=== PATIENT | female | born 1965 | race Caucasian/White ===

== ENCOUNTER 2023-12-01 14:50 | Emergency (ER) | payer MEDICAID ==
[~2023-12-01] VITALS: Ht 165.1 cm; Wt 53.1 kg
[2023-12-01 14:59] VITALS: TEMP 98.7
[2023-12-01 15:19] LABS: BILIRUBIN,URINE NEGATIVE (Neg); CLARITY,URINE CLOUDY (Clear); COLOR,URINE STRAW (Yellow); GLUCOSE, URINE NEGATIVE (Neg); KETONES,URINE NEGATIVE (Neg); LEUKOCYTE ESTERASE ,URINE MODERATE (Neg); NITRITES, URINE NEGATIVE (Neg); OCCULT BLOOD,URINE TRACE-INTACT (Neg); PROTEIN,URINE NEGATIVE (Neg); UROBILINOGEN,URINE 0.2 E.U/dL (0.2-1.0)
[2023-12-01 15:20] LABS: UA COLLECTION TYPE CLN CATCH MIDSTREAM
[2023-12-01] MEDS ORDERED: PHEN-716 PO (15:24)
[2023-12-01] MEDS ORDERED: CEPH-585 PO (15:24)
[2023-12-01 15:27] LABS: BACTERIA,URINE 4+ /HPF (Neg); MUCUS STRANDS FEW /LPF (Neg); RBC,URINE 0-2 /HPF (0-2); SQUAMOUS EPITHELIAL CELL,UR MANY /LPF (FEW); WBC,URINE 20-30 /HPF (0-4)
[2023-12-01] MEDS: CefTRIAXone 1000mg IM Kit (w/lidocaine diluent) IM ONE (15:40)
[2023-12-01 15:47] VITALS: BP 125/95; PULSE 80; RESP 16; O2SAT 96
== END 2023-12-01 15:49 | disposition home or self-care (01) ==
LOC: ER 14:51
DX: N39.0 Urinary tract infection, site not specified (principal)
CPT/HCPCS: 81001; 96372; 99283; J0696

== ENCOUNTER 2024-01-16 10:04 | Emergency (ER) | payer MEDICAID ==
[~2024-01-16] VITALS: Ht 165.1 cm; Wt 57.6 kg
[~2024-01-16 10:04] MED LIST: CEPH-585 PO; PHEN-716 PO
[2024-01-16 10:08] VITALS: BP 140/78; PULSE 73; RESP 18; O2SAT 98
[2024-01-16 11:24] LABS: ALBUMIN 3.9 G/DL (3.4-5.0); ANION GAP 8 (8-16); BLOOD UREA NITROGEN 8 MG/DL (7-18); BUN/CREATININE RATIO 12.1 (10.0-20.0); CALCIUM 9.2 MG/DL (8.5-10.1); CHLORIDE 105 MMOL/L (99-107); CREATININE 0.66 MG/DL (0.40-0.90); GLUCOSE 90 MG/DL (70-104); POTASSIUM 3.7 MMOL/L (3.5-5.1); SODIUM 139 MMOL/L (135-145); TOTAL CARBON DIOXIDE 26.5 MMOL/L (24-32); eCRCL 86 ML/MIN; eGFR > 90 ML/MIN
[2024-01-16 11:57] LABS: BASOPHILS # (AUTO) 0.1 X10'3 (0-0.2); EOSINOPHILS # (AUTO) 0.1 X10'3 (0-0.9); EOSINOPHILS % (AUTO) 0.8 % (0-6); HEMATOCRIT 48.5 % (35.0-45.0); HEMOGLOBIN 16.2 g/dl (12.0-16.0); LYMPHOCYTES # (AUTO) 1.1 X10'3 (1.1-4.8); LYMPHOCYTES % (AUTO) 14.5 % (21-51); MEAN CORPUSCULAR HGB CONC 33.4 g/dL (33.0-36.5); MEAN PLATELET VOLUME 8.8 FL (7.4-10.4); MONOCYTES # (AUTO) 0.5 X10'3 (0-0.9); MONOCYTES % (AUTO) 6.9 % (2-12); NEUTROPHILS # (AUTO) 5.6 X10'3 (1.8-7.7); NEUTROPHILS % (AUTO) 76.8 % (42-75); PLATELET COUNT 132 X10'3 (140-440); RED BLOOD COUNT 5.39 X10'6 (4.20-5.60); RED CELL DISTRIBUTION WIDTH 15.6 % (11.5-14.5); WHITE BLOOD COUNT 7.3 X10'3 (4.5-11.0)
[2024-01-16 11:58] LABS: BILIRUBIN,URINE NEGATIVE (Neg); CLARITY,URINE SLIGHTLY CLOUDY (Clear); COLOR,URINE YELLOW (Yellow); GLUCOSE, URINE NEGATIVE (Neg); KETONES,URINE NEGATIVE (Neg); LEUKOCYTE ESTERASE ,URINE NEGATIVE (Neg); NITRITES, URINE NEGATIVE (Neg); OCCULT BLOOD,URINE NEGATIVE (Neg); PROTEIN,URINE NEGATIVE (Neg)
[2024-01-16 12:01] LABS: UA COLLECTION TYPE CLN CATCH MIDSTREAM
[2024-01-16 12:07] LABS: MUCUS STRANDS FEW /LPF (Neg); SQUAMOUS EPITHELIAL CELL,UR MANY /LPF (FEW)
[2024-01-16 12:08] LABS: BACTERIA,URINE 1+ /HPF (Neg); RBC,URINE 0-2 /HPF (0-2); WBC,URINE 0-4 /HPF (0-4)
[2024-01-16] MEDS ORDERED: DET2LAC PO (12:26)
[2024-01-16 12:41] VITALS: TEMP 98
== END 2024-01-16 12:42 | disposition home or self-care (01) ==
LOC: ER 10:05
DX: R35.0 Frequency of micturition (principal); F17.200 Nicotine dependence, unspecified, uncomplicated; Z79.2 Long term (current) use of antibiotics; Z79.899 Other long term (current) drug therapy
CPT/HCPCS: 36415; 80048; 81001; 83605; 84145; 85025; 87040; 99283

== ENCOUNTER 2024-07-30 10:01 | Emergency (ER) | payer MEDICAID ==
[~2024-07-30] VITALS: Ht 165.1 cm; Wt 56.8 kg
[2024-07-30 10:06] VITALS: TEMP 98.8
--- NOTE | 2024-07-30 11:28 | Physician Documentation ---
History of Present Illness ~ Chief Complaint: Constipation Stated Complaint: CONSTIPATION Time Seen by MD: 11:11 OK to notify your PCP?: Yes Primary Medical Doctor: None Source: patient Mode of Arrival: EMS ([facility] ambulance) Exam Limitations: no limitations HPI This is a 58-year-old female who was brought in via [facility] ambulance for constipation. The patient states she is currently in a recovery program and has not had access to ryph-btx-niqhjue stool softeners or laxatives. She states that she has been clean for six months and denies taking any opiate medications. She denies dark tarry or bloody stools. She is not complaining of abdominal pain. She denies nausea or vomiting. Medication Reconciliation Allergies: Coded Allergies: No Known Allergies (Unverified , 12/01/23) Scheduled Cephalexin*Monohydrate* (Keflex*), 1 CAP PO QID Phenazopyridine HCl (Pyridium), 1 TAB PO Q8H Physical Exam Vital Signs: Temperature: 98.8, Heart Rate: 67, Respiratory Rate: 18, BP: 123/77, Pulse Oximetry: 98, Weight: 56.820 Oxygen Flow Rate: 0 Pulse Oximetry Reflects: adequate oxygenation General Appearance: alert, WD/WN, no apparent distress Respiratory: no respiratory distress Chest: no accessory muscle use Gastrointestinal To inspection of the abdomen no obvious distention. She is not tender to palpation x4 quadrants. She has not normoactive bowel sounds x4 quadrants. No rigidity, rebound or guarding. Negative Cuba's sign. Negative McBurney's point tenderness. Back: no CVA tenderness Progress Results/Orders Reviewed/noted all lab results: Yes Results/Orders Orders - VIKRAM CELIS Abdomen,Single View(Kub) (07/30/24 11:46) Completed Orders - VIKRAM CELIS Abdomen,Single View(Kub) (07/30/24 11:46) Magnesium Citrate Oral Abigail. (Magnesium C (07/30/24 12:15) Medications Received in ER Medications (Trade) Dose Ordered Sig/Xochitl Route PRN Reason Start Time Stop Time Status Last Admin Dose Admin (magnesium citrate oral solution) 296 ml ONCE ONCE PO 07/30/24 12:15 07/30/24 12:16 DC 07/30/24 12:25 296 ML Vital Signs 07/30/24 07/30/24 10:06 11:38 Temp 98.8 Pulse 67 Resp 18 18 B/P (MAP) 123/77 Pulse Ox 98 O2 Flow Rate 0 Medical Decision Making Findings Single-view abdomen did not show evidence of small bowel obstruction however there was heavy stool burden and constipation. I gave the patient Mag citrate here and we will continue with the MiraLax and Colace for home as the patient has yet to take any nvvu-oiv-yancfhk medications for constipation. I instructed her to drink lots of water and eat plenty of fruits and vegetables. Follow up with the primary care physician for recheck in the next one or two days and return to the ER for any worsening or concerning symptoms. Additional Comments Constipation. Small-bowel obstruction. Departure Disposition: HOME / SELF CARE / HOMELESS Impression: Primary Impression: Constipation Condition: Stable Discharge Instructions: Constipation, Adult Additional Instructions: Take the medications as directed. Drink lots of water and he plenty of fruits and vegetables. Follow up with the primary care physician for recheck in the next one or two days return to the ER for any worsening or concerning symptoms. Referrals: NO PRIMARY CARE PROVIDER (PCP) Prescriptions Docusate Sodium (Colace) 100 Mg Capsule 1 CAP PO Q12H for 30 Days, #60 CAP 0 Refills Prov: VIKRAM CELIS 07/30/24 Polyethylene Glycol 3350 (Miralax) 17 Gram/Dose Powder 17 GM PO DAILY for constipation, #527 GM 0 Refills dissolve in water Prov: VIKRAM CELIS 07/30/24 Signature Scribe Signature: No scribe Attestation: The note accurately reflects work and decisions made by me.Vikram WALKER 07/30/24 12:40 VIKRAM CELIS July 30, 2024 11:28
--- NOTE | 2024-07-30 12:06 | RADIOLOGY REPORT ---
Date: 07/30/2024 11:42 AM Examination: DI ABDOMEN,SINGLE VIEW(KUB) History: Constipation rule out small bowel obstruction Comparison: None TECHNIQUE: Frontal views of the abdomen was obtained. FINDINGS: Bowel gas pattern is unremarkable. Moderate stool burden. The lung bases are unremarkable. No acute osseous abnormality identified. IMPRESSION: Nonobstructive bowel gas pattern. Moderate stool burden.
[2024-07-30] MEDS: magnesium citrate 296ml oral solution PO ONE (12:25)
[2024-07-30] MEDS ORDERED: DOCU-148 PO (12:40)
[2024-07-30] MEDS ORDERED: POLY119P2 PO (12:40)
[2024-07-30 12:52] VITALS: BP 116/78; PULSE 68; RESP 18; O2SAT 100
== END 2024-07-30 12:53 | disposition home or self-care (01) ==
LOC: ER 10:01
DX: K59.00 Constipation, unspecified (principal); Z79.899 Other long term (current) drug therapy
CPT/HCPCS: 74018; 99283

== ENCOUNTER 2024-08-04 07:20 | Emergency (ER) | payer MEDICAID ==
[~2024-08-04] VITALS: Ht 165.1 cm; Wt 56.8 kg
[~2024-08-04 07:20] MED LIST changes: +DOCU-148 PO; +POLY119P2 PO
--- NOTE | 2024-08-04 07:31 | Physician Documentation ---
History of Present Illness Stated Complaint: DIARRHEA Time Seen by MD: 07:23 Primary Medical Doctor: monster KIM 58-year-old female who presents to the emergency department by ambulance from [facility], patient states he had constipation for two weeks and has been taking MiraLax over the past four days she has had profound diarrhea, she denies any blood in his stool or fever, she is here at the recommendation of the advice nurse due to her profound diarrhea. She does have a history of left-sided deficits from prior stroke Timing/Duration: days Quality/Severity: moderate Location: diffuse Radiation: no radiation Activities on Onset: spontaneous History Of: other Associated Symptoms: diarrhea Medication Reconciliation Allergies: Coded Allergies: No Known Allergies (Unverified , 08/04/24) Scheduled Cephalexin*Monohydrate* (Keflex*), 1 CAP PO QID Docusate Sodium (Colace), 1 CAP PO Q12H Phenazopyridine HCl (Pyridium), 1 TAB PO Q8H Polyethylene Glycol 3350 (Miralax), 17 GM PO DAILY Past Medical History Past Medical History: CVA/TIA/Stroke Review of Systems All Other Systems at this time: Reviewed and Negative Constitutional: Reports: see HPI; Denies: fever ENT: Reports: no symptoms reported Respiratory: Reports: no symptoms reported Cardiovascular: Reports: no symptoms reported Gastrointestinal: Reports: diarrhea, constipated Genitourinary: Reports: no symptoms reported Neurological: Reports: left sided weakness, problems walking; Denies: left sided numbness Physical Exam Pulse Oximetry Reflects: adequate oxygenation General Appearance: alert, no apparent distress EENT: PERRL/EOMI Neck: normal inspection Respiratory: lungs clear Chest: no accessory muscle use Gastrointestinal: normal palpation Extremities: non-tender Extremities Left-sided weakness compared to right Neurologic: oriented x4 Psychiatric: normal mood/affect Progress Results/Orders Results/Orders Orders - NUVIA PÉREZ DO Abdomen,Single View(Kub) (08/04/24 07:23) Cbc/Diff (08/04/24 07:23) CMP (08/04/24 07:23) Urinalysis (08/04/24 07:23) MG (08/04/24 07:23) Re-Evaluation Re-Evaluation : Progress Review of x-ray shows moderate fecal retention in the colon, suspected diarrhea is secondary to the use of MiraLax, labs were reviewed, no significant abnormalities with the electrolytes, plan is to discharge home with instructions to continue with bowel prep until constipation has been resolved and resume a normal diet after. EKG/XRAY/CT/US/VASC/MRI EKG : Additional Comment 9:55 a.m. patient is unable to provide a urine sample at this time, she denies any dysuria, plan is to discharge home, she is informed of x-ray findings that showed there is still retained stool in the colon. Abdominal X-Ray : Additional Comment [facility] [address] , [place], [facility] [address] DIAGNOSTIC RADIOLOGY Patient: WILBERT MCKAY Medical Record: [id number] [facility] : 1965, Age: 58 Sex: Female Location: ER Patient Status: [facility] ER Service Date/Time: 08/04/24722 Ordering Physician: NUVIA PÉREZ DO Exam: ABDOMEN,SINGLE VIEW(KUB) Exam: DI ABDOMEN,SINGLE VIEW(KUB) Indication: constipation Comparison: DI ABDOMEN,SINGLE VIEW(KUB) on DOS: 07/30/24 Technique: 1 radiographic views of the abdomen. Findings: Icdr-jf-gehfxeje colonic stool. Nonobstructive bowel gas pattern noted. There is no definite evidence for pneumoperitoneum. No abnormal calcifications noted. Chronic appearing right inferior pubic ramus fracture. Impression: Atrw-be-xifajzfh colonic stool. Electronically Signed by:BRIAN LOERA MD Date & Time: 08/04/24815 Dictated by: BRIAN LOERA MD Dictation date and time: 08/04/24815 Primary Care Provider: NO PRIMARY CARE PROVIDER cc: NUVIA PÉREZ DO ~ Medical Decision Making Differential Dx:Considerations: Include: Appendicitis, Bowel obstruction, Constipation, Diverticular disease, Gastritis/PUD, Ischemic bowel Departure Disposition: HOME / SELF CARE / HOMELESS Impression: Primary Impression: Constipation Additional Impression: Diarrhea Condition: Stable Additional Instructions: There is still retained stool in your colon, you could continue to use the MiraLax however your likely to have diarrhea, or he can stop the MiraLax and may run the risk of recurrent constipation, please stay hydrated increase the fiber in your diet. Referrals: NO PRIMARY CARE PROVIDER (PCP) Education Educated: Patient Educated regarding: diagnosis, treatment, prognosis Signature Scribe Signature: None Attestation: Dictated by myself NUVIA PÉREZ DO August 04, 2024 07:31
[2024-08-04 07:52] LABS: BASOPHILS # (AUTO) 0.1 X10'3 (0-0.2); BASOPHILS % (AUTO) 1.2 % (0-1); EOSINOPHILS % (AUTO) 0.6 % (0-6); HEMATOCRIT 46.1 % (35.0-45.0); HEMOGLOBIN 15.6 g/dl (12.0-16.0); LYMPHOCYTES # (AUTO) 0.8 X10'3 (1.1-4.8); LYMPHOCYTES % (AUTO) 15.4 % (21-51); MEAN CORPUSCULAR HEMOGLOBIN 30.3 PG (27.0-31.0); MEAN CORPUSCULAR VOLUME 89.3 FL (78-98); MEAN PLATELET VOLUME 8.1 FL (7.4-10.4); MONOCYTES # (AUTO) 0.3 X10'3 (0-0.9); MONOCYTES % (AUTO) 5.9 % (2-12); NEUTROPHILS # (AUTO) 4.1 X10'3 (1.8-7.7); NEUTROPHILS % (AUTO) 76.9 % (42-75); PLATELET COUNT 122 X10'3 (140-440); RED BLOOD COUNT 5.16 X10'6 (4.20-5.60); RED CELL DISTRIBUTION WIDTH 13.9 % (11.5-14.5); WHITE BLOOD COUNT 5.3 X10'3 (4.5-11.0)
[2024-08-04 08:07] LABS: ALANINE AMINOTRANSFERASE 16 U/L (12-78); ALBUMIN 3.8 G/DL (3.4-5.0); ALBUMIN/GLOBULIN RATIO 1.2 (1.1-1.5); ALKALINE PHOSPHATASE 131 IU/L (46-116); ANION GAP 11 (8-16); ASPARTATE AMINO TRANSFERASE 22 U/L (10-37); BILIRUBIN,TOTAL 1.2 MG/DL (0.1-1.0); BLOOD UREA NITROGEN 7 MG/DL (7-18); CALCIUM 9.1 MG/DL (8.5-10.1); CHLORIDE 108 MMOL/L (99-107); CREATININE 0.88 MG/DL (0.40-0.90); GLUCOSE 121 MG/DL (70-104); POTASSIUM 3.7 MMOL/L (3.5-5.1); SODIUM 145 MMOL/L (135-145); TOTAL CARBON DIOXIDE 25.8 MMOL/L (24-32); TOTAL PROTEIN 7.1 G/DL (6.4-8.2); eCRCL 64 ML/MIN; eGFR 66 ML/MIN
--- NOTE | 2024-08-04 08:18 | RADIOLOGY REPORT ---
Exam: DI ABDOMEN,SINGLE VIEW(KUB) Indication: constipation Comparison: DI ABDOMEN,SINGLE VIEW(KUB) on DOS: 07/30/24 Technique: 1 radiographic views of the abdomen. Findings: Nqfj-bz-lbizekuv colonic stool. Nonobstructive bowel gas pattern noted. There is no definite evidence for pneumoperitoneum. No abnormal calcifications noted. Chronic appearing right inferior pubic ramus fracture. Impression: Zymx-oh-hkdncaqa colonic stool.
[2024-08-04 10:20] VITALS: BP 130/88; PULSE 79; RESP 18; TEMP 98.4; O2SAT 100
== END 2024-08-04 10:22 | disposition home or self-care (01) ==
LOC: ER 07:21
DX: K59.00 Constipation, unspecified (principal); R19.7 Diarrhea, unspecified; R53.1 Weakness; Z86.73 Personal history of transient ischemic attack (TIA), and cerebral infarction without residual deficits; Z79.899 Other long term (current) drug therapy
CPT/HCPCS: 36415; 74018; 80053; 83735; 85025; 99284